=== PATIENT | female | born 1985 | race Two or more races ===

== ENCOUNTER 2023-10-16 21:56 | Emergency (ER) | payer OTHER ==
[~2023-10-16] VITALS: Ht 157.5 cm; Wt 61.7 kg
[2023-10-16] MEDS ORDERED: INTESTINEX680 M1 PO (23:04)
[2023-10-16] MEDS ORDERED: LEVOFLOXACIN500 MG PO (23:04)
== END 2023-10-16 23:14 | disposition home or self-care (01) ==
LOC: ER 21:57
DX: J40 Bronchitis, not specified as acute or chronic (principal); Z88.8 Allergy status to other drugs, medicaments and biological substances; Z91.018 Allergy to other foods

== ENCOUNTER 2024-07-24 10:07 | Emergency (ER) | payer OTHER ==
[~2024-07-24] VITALS: Ht 157.5 cm; Wt 56.7 kg
[~2024-07-24 10:07] MED LIST: INTESTINEX680 M1 PO; LEVOFLOXACIN500 MG PO; NASAL MIST126 ML
== END 2024-07-24 15:23 | disposition home or self-care (01) ==
LOC: ER 10:10
DX: J10.1 Influenza due to other identified influenza virus with other respiratory manifestations (principal); Z20.822 Contact with and (suspected) exposure to COVID-19; Z88.8 Allergy status to other drugs, medicaments and biological substances; Z91.018 Allergy to other foods